=== PATIENT | female | born 1980 | race African-American/Black ===

== ENCOUNTER → 2020-05-07 | Outpatient (CLI) | payer MEDICAID | END | disposition home or self-care (01) | LOC: LAB 13:34 | PROVIDERS: ATTEND Obstetrics & Gynecology | DX: Z01.818 Encounter for other preprocedural examination (principal); Z11.59 Encounter for screening for other viral diseases | CPT/HCPCS: 87635; C9803 ==

== ENCOUNTER 2020-05-11 12:20 | Inpatient (IN) | payer MEDICAID ==
[~2020-05-11] VITALS: Ht 167.6 cm; Wt 72.6 kg
[~2020-05-11 12:20] MED LIST: LACTATED RINGERS 1,000 ML IV SCH
[2020-05-11 13:05] LABS: HEMATOCRIT 32.6 % (36.0-48.0); HEMOGLOBIN 11.2 g/dL (12.0-16.0); MEAN CORPUSCULAR HEMOGLOBIN 28.2 pg (28.0-32.0); MEAN CORPUSCULAR VOLUME 82.1 fL (81.0-99.0); PLATELET 316 x1000/uL (130-400); RED BLOOD CELL COUNT 3.98 mill/uL (4.2-5.4); RED CELL DISTRIBUTION WIDTH 15.9 % (11.6-14.6)
[2020-05-11 13:10] LABS: CLARITY URINE CLEAR (CLEAR); COLOR URINE YELLOW (YELLOW); KETONES URINE NEGATIVE (NEGATIVE); LEUKOCYTE ESTERASE URINE NEGATIVE (NEGATIVE); NITRITE URINE NEGATIVE (NEGATIVE); OCCULT BLOOD URINE TRACE (NEGATIVE); PROTEIN URINE NEGATIVE (NEGATIVE); SPECIFIC GRAVITY URINE 1.023 (1.005-1.030); UROBILINOGEN URINE 0.2 E.U./dL (0.2-1.0)
[2020-05-11 13:11] LABS: CHLORIDE 109 mEq/L (98-107); UCG SCREEN NEGATIVE
[2020-05-11 13:30] LABS: PARTIAL THROMBOPLASTIN TIME 28.2 sec (23.4-31.0); PROTHROMBIN TIME 10.3 sec (9.6-11.0)
[2020-05-11] MEDS ORDERED: IBUPROFEN 600MG TABLET PO PRN (16:45)
[2020-05-11] MEDS ORDERED: ONDANSETRON HCL 4MG/2ML INJ IV PRN ×2 (16:45→20:15)
[2020-05-11] MEDS ORDERED: MORPHINE SULFATE 2 MG/ML CPJ (NOT FOR IM USE) IV PRN (16:45)
[2020-05-11] MEDS ORDERED: BUPIVACAINE HCL/PF 0.5% (5MG/ML) 10ML ONE (17:09)
[2020-05-11] MEDS ORDERED: VASOPRESSIN 20 UNIT/ML 1ML ONE ×2 (17:09→18:33)
[2020-05-11] MEDS ORDERED: PROPOFOL 200MG/20ML VIAL IV ONE (17:19)
[2020-05-11] MEDS ORDERED: LIDOCAINE HCL/PF 1% 10 MG/ML 5ML VIAL ONE (17:19)
[2020-05-11] MEDS ORDERED: FENTANYL CITRATE/PF 50MCG/ML 2ML VIAL ONE ×3 (17:19→19:20)
[2020-05-11] MEDS ORDERED: MIDAZOLAM HCL 2 MG/2 ML VIAL ONE (17:19)
[2020-05-11] MEDS ORDERED: SUCCINYLCHOLINE CHLORIDE 200MG/10ML IV ONE (17:20)
[2020-05-11] MEDS ORDERED: ROCURONIUM BROMIDE 10MG/ML VIAL 5ML IV ONE ×2 (17:20→18:09)
[2020-05-11] MEDS ORDERED: CEFAZOLIN SODIUM 1000MG/VIAL ONE (17:46)
[2020-05-11] MEDS ORDERED: ONDANSETRON HCL 4MG/2ML INJ ONE (18:57)
[2020-05-11] MEDS ORDERED: DEXAMETHASONE 4MG/ML 1ML VIAL ONE (18:57)
[2020-05-11] MEDS ORDERED: GLYCOPYRROLATE 0.2 MG/ML 2ML VIAL ONE ×2 (19:30→19:32)
[2020-05-11] MEDS ORDERED: MEPERIDINE HCL/PF 25MG/ML CPJ IM NR (20:45)
[2020-05-11] MEDS ORDERED: DIPHENHYDRAMINE INJ IV PRN (20:45)
[2020-05-11] MEDS ORDERED: NALOXONE INJ IV PRN (20:45)
[2020-05-11] MEDS ORDERED: ONDANSETRON INJ IV PRN (20:45)
[2020-05-11] MEDS ORDERED: MORPHINE PCA 50MG/50ML IV PRN (20:45)
[2020-05-11] MEDS: HYDROMORPHONE HCL/PF 2MG/ML CPJ IV PRN ×2 (21:10→21:37)
[2020-05-11 21:45] VITALS: BP 129/85
[2020-05-11] MEDS ORDERED: ACETAMINOPHEN 325MG TABLET PO PRN (22:30)
[2020-05-11] MEDS ORDERED: ZOLPIDEM TARTRATE 5MG TABLET PO PRN (22:30)
[2020-05-12] VITALS: BP 129/85
[2020-05-12 04:00] VITALS: BP 133/77
[2020-05-12 07:10] LABS: HEMATOCRIT. 27.5 % (36.0-48.0); HEMOGLOBIN. 9.3 g/dL (12.0-16.0); MEAN CORPUSCULAR HEMOGLOBIN 27.7 pg (28.0-32.0); MEAN CORPUSCULAR VOLUME 82.1 fL (81.0-99.0); MEAN PLATELET VOLUME 8.5 fl (7.4-10.4); PLATELET 279 x1000/uL (130-400); RED BLOOD CELL COUNT 3.35 mill/uL (4.2-5.4); RED CELL DISTRIBUTION WIDTH 15.9 % (11.6-14.6)
[2020-05-12 08:00] VITALS: BP 103/62
[2020-05-12 12:00] VITALS: BP 110/72
[2020-05-12 12:37] LABS: PLATELET ESTIMATE NORMAL
[2020-05-12] MEDS ORDERED: IOHEXOL-350 100 ML BOTTLE ONE (15:37)
[2020-05-12 16:00] VITALS: BP 119/67
[2020-05-12 17:31] LABS: TOTAL IRON BINDING CAPACITY 383 ug/dL (250-450)
[2020-05-12] MEDS: ONDANSETRON HCL 4MG/2ML INJ IV PRN (19:28)
[2020-05-12 20:00] VITALS: BP 107/69
[2020-05-13] VITALS: BP 129/72
[2020-05-13 04:00] VITALS: BP 119/69
[2020-05-13 05:46] LABS: BASOPHILS % 0.2 % (0.0-2.0); EOSINOPHILS % 0.7 % (0.0-5.0); HEMATOCRIT. 24.4 % (36.0-48.0); HEMOGLOBIN. 8.2 g/dL (12.0-16.0); LYMPHOCYTES % 15.9 % (20.0-50.0); MEAN CORPUSCULAR HEMOGLOBIN 27.6 pg (28.0-32.0); MEAN CORPUSCULAR VOLUME 81.7 fL (81.0-99.0); MEAN PLATELET VOLUME 8.3 fl (7.4-10.4); NEUTROPHILS % 77.2 % (40.0-76.0); PLATELET 257 x1000/uL (130-400); RED BLOOD CELL COUNT 2.99 mill/uL (4.2-5.4); RED CELL DISTRIBUTION WIDTH 15.6 % (11.6-14.6)
[2020-05-13 08:00] VITALS: BP 108/65
[2020-05-13] MEDS: DOCUSATE SODIUM 250MG CAPSULE PO SCH (09:22)
[2020-05-13 12:00] VITALS: BP 100/52
[2020-05-13] MEDS ORDERED: FERR325T6 MT (13:02)
[2020-05-13] MEDS ORDERED: DOCU250C14 MT (13:02)
[2020-05-13] MEDS ORDERED: HYDR-4001 MT (13:02)
[2020-05-13] MEDS ORDERED: LACTULOSE 20G/30ML UDC PO NR (13:30)
[2020-05-13 16:00] VITALS: BP 114/74
[2020-05-13] MEDS: FERROUS SULFATE 325MG TABLET PO SCH (17:47)
[2020-05-13] MEDS: HYDROCODONE/ACETAMINOPHEN 5/325MG TABLET PO PRN ×2 (17:48→22:07)
[2020-05-13 20:00] VITALS: BP 118/70
[2020-05-13] MEDS: ONDANSETRON HCL 4MG/2ML INJ IV PRN (23:34)
[2020-05-14] VITALS: BP 106/62
[2020-05-14 04:00] VITALS: BP 106/64
[2020-05-14] MEDS: HYDROCODONE/ACETAMINOPHEN 5/325MG TABLET PO PRN ×3 (04:06→15:55)
[2020-05-14] MEDS: FERROUS SULFATE 325MG TABLET PO SCH ×2 (07:00→13:50)
[2020-05-14 07:20] LABS: BASOPHILS % 0.4 % (0.0-2.0); EOSINOPHILS % 5.4 % (0.0-5.0); HEMATOCRIT. 24.2 % (36.0-48.0); HEMOGLOBIN. 8.1 g/dL (12.0-16.0); LYMPHOCYTES % 18.5 % (20.0-50.0); MEAN CORPUSCULAR HEMOGLOBIN 27.5 pg (28.0-32.0); MEAN CORPUSCULAR VOLUME 82.3 fL (81.0-99.0); MEAN PLATELET VOLUME 8.3 fl (7.4-10.4); MONOCYTES % 5.7 % (2.0-8.0); PLATELET 262 x1000/uL (130-400); RED BLOOD CELL COUNT 2.94 mill/uL (4.2-5.4); RED CELL DISTRIBUTION WIDTH 15.9 % (11.6-14.6)
[2020-05-14 08:00] VITALS: BP 108/70
[2020-05-14] MEDS: DOCUSATE SODIUM 250MG CAPSULE PO SCH (09:42)
[2020-05-14 13:56] VITALS: BP 113/68
[2020-05-14 16:00] VITALS: BP 113/68
== END 2020-05-14 19:00 | disposition home or self-care (01) | DRG 519 ==
LOC: OR 12:20 → SUPCPDRO 18:02 → 6WST 05-12 → 6EST 05-12 00:01
PROVIDERS: ADMIT Ophthalmology; ATTEND Obstetrics & Gynecology
PROC: 0UB90ZZ Excision of Uterus, Open Approach (ICD-10-PCS; principal; 2020-05-11)
DX: D25.2 Subserosal leiomyoma of uterus (principal); E87.8 Other disorders of electrolyte and fluid balance, not elsewhere classified; D64.9 Anemia, unspecified
CPT/HCPCS: 36415; 74018; 80053; 81003; 81025; 82728; 83540; 83550; 85025; 85027; 86850; 86900; 88305; J0330; J0690; J1100; J1170; J2175; J2250; J2270; J2405; J2704; J3010; J3490; Q9967